=== PATIENT | male | born 1955 | race Caucasian/White ===

== ENCOUNTER 2022-06-29 09:55 | Emergency (ER) | payer MEDICARE, MEDICAID ==
[~2022-06-29] VITALS: Ht 177.8 cm; Wt 75.0 kg
[2022-06-29 10:49] LABS: Neutrophils # (auto) 4.9 10 ^3/uL (1.6-8.6); White Blood Cell 6.7 10^3/uL (4.4-10.8)
[2022-06-29 10:50] LABS: Basophils # (auto) 0 10 ^3/uL (0-0.2); Basophils % (auto) 0.6 % (0.0-2.0); Eosinophils # (auto) 0 10 ^3/uL (0-0.8); Eosinophils % (auto) 0.6 % (0.0-7.0); Hematocrit 42.7 % (41.0-53.0); Hemoglobin 14.6 g/dL (13.5-17.5); Lymphocytes % (auto) 14.6 % (10.0-50.0); Mean Corpuscular Hgb Conc. 34.1 g/dL (32.0-36.0); Mean Corpuscular Volume 102.9 fL (80.0-100.0); Monocytes # (auto) 0.8 10 ^3/uL (0-1.3); Monocytes % (auto) 11.3 % (0.0-12.0); Neutrophils % (auto) 72.9 % (37.0-80.0); Nucleated Red Blood Cells % 0.1 %; Red Blood Cells 4.15 10^6/uL (4.5-5.90); Red Cell Distribution Width 12.1 % (11.8-14.3)
[2022-06-29 11:05] LABS: Albumin 3.9 g/dL (3.4-5.0); BUN/Creatinine Ratio 11.8; Calcium 9.3 mg/dL (8.5-10.1); Potassium 3.9 mmol/L (3.5-5.1)
[2022-06-29 11:09] LABS: Bilirubin, Total 0.5 mg/dL (0.2-1.0)
[2022-06-29 12:36] LABS: Urine Bacteria NONE SEEN /hpf (None Seen); Urine Blood Negative /uL (Negative); Urine Mucus FEW (None Seen); Urine Specific Gravity 1.026 (1.001-1.035); Urine WBC 1 /hpf (0 - 3)
[2022-06-29 13:21] VITALS: BP 123/77
== END 2022-06-29 13:23 | disposition home or self-care (01) ==
LOC: ER 09:55
DX: K76.89 Other specified diseases of liver (principal); K59.00 Constipation, unspecified; K86.9 Disease of pancreas, unspecified; I10 Essential (primary) hypertension; F17.210 Nicotine dependence, cigarettes, uncomplicated
CPT/HCPCS: 36415; 71046; 74176; 80053; 81001; 83690; 84484; 85025; 93005

== ENCOUNTER 2023-08-23 01:07 | Inpatient (IN) | payer MEDICARE, MEDICAID ==
[~2023-08-23] VITALS: Ht 165.1 cm; Wt 58.1 kg
[2023-08-23] VITALS (9 sets, daily range): BP systolic 102–115; BP diastolic 54–68; PULSE 64–94; RESP 14–18; TEMP 98.2–99.2; O2SAT 96–99
[2023-08-23] MEDS: ONDANSETRON HCL 4 MG/2 ML VIAL IV ONE ×2 (01:45→05:30)
[2023-08-23 02:17] LABS: Basophils # (auto) 0 10 ^3/uL (0-0.2); Basophils % (auto) 0.2 % (0.0-2.0); Eosinophils # (auto) 0.1 10 ^3/uL (0-0.8); Hemoglobin 8.5 g/dL (13.5-17.5); Mean Corpuscular Volume 104.3 fL (80.0-100.0); Monocytes # (auto) 2.1 10 ^3/uL (0-1.3); White Blood Cell 17.6 10^3/uL (4.4-10.8)
[2023-08-23 02:18] LABS: Eosinophils % (auto) 0.4 % (0.0-7.0); Hematocrit 25.6 % (41.0-53.0); Lymphocytes % (auto) 5.9 % (10.0-50.0); Mean Corpuscular Hemoglobin 34.5 pg (28.0-32.0); Mean Corpuscular Hgb Conc. 33.1 g/dL (32.0-36.0); Monocytes % (auto) 11.8 % (0.0-12.0); Neutrophils # (auto) 14.4 10 ^3/uL (1.6-8.6); Neutrophils % (auto) 81.7 % (37.0-80.0); Red Blood Cells 2.45 10^6/uL (4.5-5.90)
[2023-08-23] MEDS: PANTOPRAZOLE 40 MG/10 ML VIAL INJ IV ONE (02:19)
[2023-08-23 02:36] LABS: INR 1.09 (0.9-1.15); Partial Thromboplastin Time 23.7 SEC (24.5-34.5); Prothrombin Time 11.5 sec (9.3-11.8)
[2023-08-23 02:40] LABS: Alanine Aminotransferase 26 U/L (7-40); Albumin 3.4 g/dL (3.2-4.8); Alkaline Phosphatase 147 U/L (46-116); Anion Gap 5 (5-15); Aspartate Aminotransferase 20 U/L (13-40); Bilirubin, Total 0.4 mg/dL (0.2-1.0); Blood Urea Nitrogen 20 mg/dL (9-23); Carbon Dioxide 31 mmol/L (20-30); Chloride 101 mmol/L (98-107); Glucose 201 mg/dL (74-106); Potassium 4.2 mmol/L (3.5-5.1); Sodium 137 mmol/L (136-145); Total Protein 5.6 g/dL (5.7-8.2)
[2023-08-23] MEDS: MORPHINE SULFATE INJ 2 MG/ml SYRG IV ONE (05:30)
[2023-08-23] MEDS: MIDAZOLAM HCL 2MG/2ML 2ml VIAL (1mg/ml) IV ONE (05:30)
[2023-08-23] MEDS: PIPERACILLIN-TAZO 4.5GM 100 ML IV ONE (05:46)
[2023-08-23] MEDS: SODIUM CHLORIDE 0.9% 1,000 ML IV ONE ×2 (05:46→18:36)
[2023-08-23] MEDS ORDERED: ACETAMINOPHEN 325 MG TAB PO PRN (06:15)
[2023-08-23] MEDS ORDERED: DOCUSATE SOD 100 MG CAP PO PRN (06:15)
[2023-08-23 06:23] LABS: Basophils # (auto) 0 10 ^3/uL (0-0.2); Eosinophils # (auto) 0 10 ^3/uL (0-0.8); Hemoglobin 7.5 g/dL (13.5-17.5); Lymphocytes # (auto) 0.7 10 ^3/uL (0.4-5.4)
[2023-08-23] MEDS ORDERED: MORPHINE SULFATE INJ 2 MG/ml SYRG IV PRN (06:45)
[2023-08-23] MEDS ORDERED: NITROGLYCERIN 0.4 MG SL TAB SL PRN (06:45)
[2023-08-23 06:56] LABS: Alanine Aminotransferase 23 U/L (7-40); Albumin 3.2 g/dL (3.2-4.8); Alkaline Phosphatase 134 U/L (46-116); Anion Gap 4 (5-15); Aspartate Aminotransferase 19 U/L (13-40); BUN/Creatinine Ratio 27.7 (10.0-20.0); Bilirubin, Total 0.4 mg/dL (0.2-1.0); Blood Urea Nitrogen 18 mg/dL (9-23); Calcium 8.6 mg/dL (8.7-10.4); Carbon Dioxide 30 mmol/L (20-30); Chloride 102 mmol/L (98-107); Glucose 126 mg/dL (74-106); Potassium 4.7 mmol/L (3.5-5.1); Sodium 136 mmol/L (136-145); Total Protein 5.2 g/dL (5.7-8.2)
[2023-08-23 06:57] LABS: Basophils % (auto) 0.4 % (0.0-2.0); Hematocrit 23.3 % (41.0-53.0); Lymphocytes % (auto) 5.2 % (10.0-50.0); Mean Corpuscular Hemoglobin 33.9 pg (28.0-32.0); Mean Corpuscular Hgb Conc. 32.4 g/dL (32.0-36.0); Mean Corpuscular Volume 104.7 fL (80.0-100.0); Monocytes # (auto) 1.2 10 ^3/uL (0-1.3); Monocytes % (auto) 8.8 % (0.0-12.0); Neutrophils # (auto) 11.2 10 ^3/uL (1.6-8.6); Neutrophils % (auto) 85.6 % (37.0-80.0); Red Blood Cells 2.22 10^6/uL (4.5-5.90); Red Cell Distribution Width 16.5 % (11.8-14.3); White Blood Cell 13.1 10^3/uL (4.4-10.8)
[2023-08-23 07:28] LABS: Urine Bacteria FEW /hpf (None Seen); Urine Blood Negative /uL (Negative); Urine Clarity Clear (Clear); Urine Color Light-Yellow (Yellow); Urine Protein, UAD Negative (Negative); Urine Sperm PRESENT /hpf (None Seen); Urine Urobilinogen Normal (Negative); Urine WBC 1 /hpf (0 - 3); Urine pH 6.5 (5.0-9.0)
[2023-08-23] MEDS: SODIUM CHLORIDE 0.9% 1,000 ML IV SCH (07:40)
[2023-08-23] MEDS: MORPHINE SULFATE INJ 2 MG/ml SYRG IV PRN (07:48)
[2023-08-23] MEDS: ONDANSETRON HCL 4 MG/2 ML VIAL IV PRN (07:49)
[2023-08-23] MEDS: PANTOPRAZOLE 40 MG/10 ML VIAL INJ IV SCH ×2 (07:49→16:02)
[2023-08-23] MEDS: BENZOCAINE (DENTAL) 20 % SPRAY 60ML MT ONE (08:46)
[2023-08-23] MEDS: cefTRIAXone 1GM/50ML D5W 50 ML IV SCH (08:47)
[2023-08-23 10:04] LABS: Amphetamine Screen, Urine Neg (NEGATIVE)
[2023-08-23 10:05] LABS: Barbiturate Scree,Urine Neg (NEGATIVE); Benzodiazephine Screen, Urine Neg (NEGATIVE); Cannabinoid Screen, Urine Neg (NEGATIVE); Cocaine Screen, Urine Neg (NEGATIVE); Opiate Scree,Urine Neg (NEGATIVE); Phencyclidine Screen, Urine Neg (NEGATIVE)
[2023-08-23] MEDS: CEFEPIME 2GM/50ML NS 50 ML IV ONE (10:11)
[2023-08-23 11:35] LABS: COVID19 ANTIGEN SOFIA FIA NEGATIVE (NEGATIVE)
[2023-08-23 12:08] LABS: Hematocrit 20.7 % (41.0-53.0); Mean Corpuscular Hemoglobin 34.9 pg (28.0-32.0); Mean Corpuscular Hgb Conc. 33.6 g/dL (32.0-36.0); Red Blood Cells 1.99 10^6/uL (4.5-5.90); Red Cell Distribution Width 15.8 % (11.8-14.3); White Blood Cell 10.6 10^3/uL (4.4-10.8)
[2023-08-23 12:20] LABS: Basophils % (manual) 0 (0.0-2.0); Blast Cells 0; Eosinophils % (manual) 0 (0-7); Hemoglobin 6.9 g/dL (13.5-17.5); Metamyelocytes % 0; Myelocytes % 0; Promyelocytes % 0; Reactive Lymphocytes 0
[2023-08-23] MEDS: FLEET ENEMA(ADULT) 135 ML PR ONE (12:23)
[2023-08-23] MEDS ORDERED: PPN PER PHARMACY 0 ML IV SCH (12:30)
[2023-08-23 12:58] LABS: Band Neutrophils % (manual) 11; Lymphocytes % (manual) 17 (10.0-50.0); Monocytes % (manual) 1 (0-12); Platelet Estimate Adequate
[2023-08-23 13:59] LABS: Phosphorus 3.6 mg/dL (2.4-5.1)
[2023-08-23] MEDS: metroNIDAZOLE 500MG/100ML 100 ML IV SCH (14:24)
[2023-08-23] MEDS ORDERED: DEXTROSE (50%) 50ML SYRG IV SCH (15:15)
[2023-08-23] MEDS: CEFEPIME 2GM/50ML NS 50 ML IV SCH (17:47)
[2023-08-23] MEDS: ACCU-CHEK COMFORT CURVE STRIP VI SCH (17:48)
[2023-08-23] MEDS: InsuLIN REG 1unit/0.01ml Soln (100units/ml) SC SCH (17:51)
[2023-08-23] MEDS: OCTREOTIDE ACETATE 100 MCG in SODIUM CHL 0.9% 50 ML IV ONE (18:00)
[2023-08-23] MEDS: PANTOPRAZOLE 40mg/50ML NS AE 50 ML IV SCH (18:26)
[2023-08-23] MEDS: OCTREOTIDE ACETATE 500 MCG in SODIUM CHL 0.9% 99 ML IV SCH (19:00)
[2023-08-23 19:11] LABS: Hematocrit 21.4 % (41.0-53.0)
[2023-08-23 19:15] LABS: Hemoglobin 6.8 g/dL (13.5-17.5)
[2023-08-23] MEDS: AMINO ACID INFUSION IN D5W 1,000 ML IV ONE (20:00)
[2023-08-23] MEDS: OMNIPAQUE 12mg/ml 500ml ORAL SOLUTION PO ONE (21:38)
[2023-08-23] MEDS: IOHEXOL 350 MG/ML 100ML IJ ONE (21:38)
[2023-08-24] VITALS: BP 121/63; PULSE 64; RESP 100; TEMP 98.6
[2023-08-24 00:48] LABS: Hematocrit 21.6 % (41.0-53.0); Hemoglobin 7.1 g/dL (13.5-17.5)
[2023-08-24 04:52] LABS: Basophils # (auto) 0 10 ^3/uL (0-0.2); Eosinophils # (auto) 0 10 ^3/uL (0-0.8); Hematocrit 21.4 % (41.0-53.0); Monocytes # (auto) 1.1 10 ^3/uL (0-1.3); Monocytes % (auto) 7.4 % (0.0-12.0); White Blood Cell 14.3 10^3/uL (4.4-10.8)
[2023-08-24 04:55] LABS: Basophils % (auto) 0.1 % (0.0-2.0); Lymphocytes % (auto) 6.9 % (10.0-50.0); Mean Corpuscular Hgb Conc. 32.4 g/dL (32.0-36.0); Mean Corpuscular Volume 95.5 fL (80.0-100.0); Neutrophils # (auto) 12.2 10 ^3/uL (1.6-8.6); Neutrophils % (auto) 85.6 % (37.0-80.0); Nucleated Red Blood Cells % 0.3 %; Red Blood Cells 2.24 10^6/uL (4.5-5.90); Red Cell Distribution Width 18.3 % (11.8-14.3)
[2023-08-24 05:00] LABS: Alanine Aminotransferase 16 U/L (7-40); Alkaline Phosphatase 93 U/L (46-116); Anion Gap 6 (5-15); Aspartate Aminotransferase 18 U/L (13-40); BUN/Creatinine Ratio 25.8 (10.0-20.0); Blood Urea Nitrogen 16 mg/dL (9-23); Carbon Dioxide 25 mmol/L (20-30); Chloride 107 mmol/L (98-107); Glucose 101 mg/dL (74-106); Magnesium 1.9 mg/dL (1.6-2.6); Potassium 4.1 mmol/L (3.5-5.1); Sodium 138 mmol/L (136-145)
[2023-08-24 05:01] LABS: Albumin 2.7 g/dL (3.2-4.8); Bilirubin, Total 0.4 mg/dL (0.2-1.0); Phosphorus 3.4 mg/dL (2.4-5.1); Total Protein 4.4 g/dL (5.7-8.2)
[2023-08-24 05:03] LABS: Hemoglobin 6.9 g/dL (13.5-17.5)
[2023-08-24 05:19] LABS: Triglycerides 92 mg/dL (< 150)
[2023-08-24] MEDS: OCTREOTIDE ACETATE 500 MCG/ML VL ONE (05:51)
[2023-08-24 06:45] VITALS: BP 150/75; PULSE 63; RESP 14; TEMP 98.6
[2023-08-24 07:05] VITALS: BP 147/74; PULSE 67; RESP 12; TEMP 98.1
[2023-08-24] MEDS: NOREPINEPHRINE 8 MG/250ML KIT 250 ML IV SCH (08:00)
[2023-08-24 09:30] VITALS: BP 145/74; PULSE 62; RESP 15; TEMP 98
[2023-08-24] MEDS: MORPHINE SULFATE 4 MG/ML SYR/VIAL IV PRN (10:10)
[2023-08-24 12:31] LABS: Hematocrit 28.2 % (41.0-53.0); Hemoglobin 9.4 g/dL (13.5-17.5)
[2023-08-24] MEDS: HYDROmorphone HCL 2 MG/ML VL/or syr IV ONE (13:02)
[2023-08-24] MEDS: HYDROmorphone HCL 2 MG/ML VL/or syr IV PRN (17:53)
[2023-08-24 18:07] LABS: Hematocrit 27.9 % (41.0-53.0); Hemoglobin 9.2 g/dL (13.5-17.5)
[2023-08-24 19:30] VITALS: PULSE 55; RESP 12; O2SAT 99
[2023-08-24] MEDS: PPN PER PHARMACY IV NR (20:33)
[2023-08-25] VITALS (9 sets, daily range): BP systolic 136–145; BP diastolic 71–79; PULSE 55–69; RESP 16–20; TEMP 97.7–98.4; O2SAT 98–100
[2023-08-25 00:46] LABS: Hematocrit 25.4 % (41.0-53.0); Hemoglobin 8.5 g/dL (13.5-17.5)
[2023-08-25 06:23] LABS: Anion Gap 6 (5-15); Carbon Dioxide 26 mmol/L (20-30); Chloride 98 mmol/L (98-107); Potassium 3.7 mmol/L (3.5-5.1)
[2023-08-25 06:24] LABS: Calcium 8.4 mg/dL (8.7-10.4)
[2023-08-25 06:28] LABS: Glucose 155 mg/dL (74-106)
[2023-08-25 06:29] LABS: Blood Urea Nitrogen 9 mg/dL (9-23)
[2023-08-25 06:38] LABS: Sodium 130 mmol/L (136-145)
[2023-08-25 06:57] LABS: Hematocrit 26.6 % (41.0-53.0); Hemoglobin 8.9 g/dL (13.5-17.5); Mean Corpuscular Hemoglobin 31.6 pg (28.0-32.0); Mean Corpuscular Hgb Conc. 33.5 g/dL (32.0-36.0); Mean Corpuscular Volume 94.1 fL (80.0-100.0); Red Blood Cells 2.83 10^6/uL (4.5-5.90); Red Cell Distribution Width 17.8 % (11.8-14.3); White Blood Cell 14.1 10^3/uL (4.4-10.8)
[2023-08-25 07:11] LABS: Basophils % (manual) 0 (0.0-2.0); Blast Cells 0; Eosinophils % (manual) 0 (0-7); Metamyelocytes % 0; Myelocytes % 0; Promyelocytes % 0; Reactive Lymphocytes 0
[2023-08-25 07:16] LABS: Hematocrit 27.2 % (41.0-53.0); Hemoglobin 8.8 g/dL (13.5-17.5)
[2023-08-25 08:13] LABS: Band Neutrophils % (manual) 4; Lymphocytes % (manual) 5 (10.0-50.0); Monocytes % (manual) 5 (0-12); Platelet Estimate Adequate
[2023-08-25] MEDS ORDERED: IOHEXOL 300 MG/ML 100ML BOTTLE IJ ONE (08:33)
[2023-08-25] MEDS ORDERED: OMNIPAQUE 12mg/ml 500ml ORAL SOLUTION PO ONE (08:33)
[2023-08-25 09:30] LABS: Albumin 3.1 g/dL (3.2-4.8); Phosphorus 2.6 mg/dL (2.4-5.1)
[2023-08-25 15:00] LABS: Potassium 3.7 mmol/L (3.5-5.1)
[2023-08-25] MEDS: PPN PER PHARMACY IV NR (20:37)
[2023-08-26] VITALS (7 sets, daily range): BP systolic 100–138; BP diastolic 61–80; PULSE 54–65; RESP 16–21; TEMP 97.4–98.3; O2SAT 94–100
[2023-08-26 06:44] LABS: Albumin 3.3 g/dL (3.2-4.8); Alkaline Phosphatase 98 U/L (46-116); Anion Gap 4 (5-15); Aspartate Aminotransferase 16 U/L (13-40); BUN/Creatinine Ratio 25.9 (10.0-20.0); Bilirubin, Total 0.5 mg/dL (0.2-1.0); Blood Urea Nitrogen 14 mg/dL (9-23); Calcium 8.4 mg/dL (8.5-10.1); Carbon Dioxide 30 mmol/L (20-30); Chloride 97 mmol/L (98-107); Glucose 127 mg/dL (74-106); Phosphorus 2.8 mg/dL (2.4-5.1); Potassium 3.9 mmol/L (3.5-5.1); Sodium 131 mmol/L (136-145)
[2023-08-26 06:45] LABS: Total Protein 5.4 g/dL (5.7-8.2)
[2023-08-26 07:03] LABS: Hemoglobin 9.5 g/dL (13.5-17.5); Mean Corpuscular Hemoglobin 31.6 pg (28.0-32.0); Mean Corpuscular Hgb Conc. 33.8 g/dL (32.0-36.0); Mean Corpuscular Volume 93.4 fL (80.0-100.0); White Blood Cell 15.5 10^3/uL (4.4-10.8)
[2023-08-26 07:07] LABS: Alanine Aminotransferase 9 U/L (7-40)
[2023-08-26 07:18] LABS: Basophils % (manual) 0 (0.0-2.0); Blast Cells 0; Eosinophils % (manual) 0 (0-7); Magnesium 2.4 mg/dL (1.6-2.6); Myelocytes % 0; Promyelocytes % 0; Reactive Lymphocytes 0
[2023-08-26 08:45] LABS: Band Neutrophils % (manual) 7; Lymphocytes % (manual) 10 (10.0-50.0); Metamyelocytes % 4; Monocytes % (manual) 6 (0-12); Platelet Estimate Adequate
[2023-08-26] MEDS: PANTOPRAZOLE 40 MG/10 ML VIAL INJ IV SCH (11:56)
[2023-08-26] MEDS: HYDROcodone-ACET 5/325MG TAB PO PRN (13:30)
[2023-08-26] MEDS ORDERED: PPN PER PHARMACY IV NR (20:00)
[2023-08-27 01:00] VITALS: BP 137/58; PULSE 65; RESP 12; TEMP 98.2; O2SAT 98
[2023-08-27 05:00] VITALS: BP 122/60; PULSE 62; RESP 12; TEMP 98.1; O2SAT 97
[2023-08-27 05:47] LABS: Basophils # (auto) 0 10 ^3/uL (0-0.2); Basophils % (auto) 0.1 % (0.0-2.0); Eosinophils # (auto) 0 10 ^3/uL (0-0.8); Eosinophils % (auto) 0.1 % (0.0-7.0); Hematocrit 27.8 % (41.0-53.0); Lymphocytes # (auto) 0.5 10 ^3/uL (0.4-5.4); Lymphocytes % (auto) 1.8 % (10.0-50.0); Mean Corpuscular Hemoglobin 30.9 pg (28.0-32.0); Mean Corpuscular Hgb Conc. 32.4 g/dL (32.0-36.0); Mean Corpuscular Volume 95.4 fL (80.0-100.0); Monocytes # (auto) 1.3 10 ^3/uL (0-1.3); Monocytes % (auto) 4.9 % (0.0-12.0); Neutrophils % (auto) 93.1 % (37.0-80.0); Red Blood Cells 2.91 10^6/uL (4.5-5.90); Red Cell Distribution Width 17.7 % (11.8-14.3); White Blood Cell 26.8 10^3/uL (4.4-10.8)
[2023-08-27 06:02] LABS: Anion Gap 5 (5-15); Carbon Dioxide 28 mmol/L (20-30); Chloride 98 mmol/L (98-107); Potassium 3.6 mmol/L (3.5-5.1); Sodium 131 mmol/L (136-145)
[2023-08-27 06:04] LABS: Calcium 8.3 mg/dL (8.5-10.1)
[2023-08-27 06:08] LABS: BUN/Creatinine Ratio 24.1 (10.0-20.0); Blood Urea Nitrogen 13 mg/dL (9-23); Glucose 117 mg/dL (74-106)
[2023-08-27 08:00] VITALS: BP 113/59; PULSE 76; RESP 16; RESP 18; TEMP 97.9; O2SAT 97
[2023-08-27 10:44] VITALS: BP 110/62; PULSE 80; RESP 18
== END 2023-08-27 13:07 | disposition left against medical advice (07) | DRG 377 ==
LOC: EDBD 01:07 → ER 01:07 → TELE 06:41 → TELE-CENTR 08-24 21:41 → CENTRAL 08-25 18:25
PROVIDERS: ADMIT Internal Medicine; ATTEND Internal Medicine
PROC: 30233N1 Transfusion of Nonautologous Red Blood Cells into Peripheral Vein, Percutaneous Approach (ICD-10-PCS; principal; 2023-08-23)
DX: K92.0 Hematemesis (principal); K65.1 Peritoneal abscess; C25.9 Malignant neoplasm of pancreas, unspecified; C78.7 Secondary malignant neoplasm of liver and intrahepatic bile duct; K56.600 Partial intestinal obstruction, unspecified as to cause; K56.7 Ileus, unspecified; K59.00 Constipation, unspecified; D64.9 Anemia, unspecified; Z53.29 Procedure and treatment not carried out because of patient's decision for other reasons; I10 Essential (primary) hypertension; Z20.822 Contact with and (suspected) exposure to COVID-19; K52.9 Noninfective gastroenteritis and colitis, unspecified; K31.89 Other diseases of stomach and duodenum; Z87.442 Personal history of urinary calculi
CPT/HCPCS: 36415; 36430; 71045; 74018; 74176; 74177; 80048; 80051; 80053; 80307; 81001; 82040; 82962; 83036; 83605; 83690; 83735; 83880; 84100; 84478; 84484; 85007; 85014; 85018; 85025; 85027; 85610; 85730; 86850; 86900; 86901; 86920; 87040; 87081; 87426; 93005; 96365; 96375; C9113; G0378; J0692; J1815; J2405; J2543; J3490; J7131